=== PATIENT | female | born 1965 | race Caucasian/White ===

== ENCOUNTER 2017-01-31 10:16 | Emergency (ER) | payer BC, MEDICAID ==
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
[2017-01-31 13:23] VITALS: BP 105/70
--- NOTE | 2017-01-31 13:26 | RAD ---
HISTORY: Facial trauma COMPARISONS: None TECHNIQUE: Multiple contiguous axial CT scans were obtained of the face without intravenous contrast, with coronal and sagittal multiplanar reformations. FINDINGS: BONES: There is a minimally displaced fracture of the nasal bones bilaterally. The orbital rims are intact. The zygomatic arches are intact. The pterygoid plates are intact. The patient is status post anterior cervical fusion, with advanced degenerative disc disease and osteoarthritis at C3-C4. There is osteoarthritis of the temporomandibular joints bilaterally. ORBITS: The globes are round. The optic nerves are symmetric. The extraocular musculature is normal. There is no post septal or intraconal inflammatory change. There is no retrobulbar hematoma. PARANASAL SINUSES: The paranasal sinuses are clear. BRAIN AND SOFT TISSUE: Unremarkable. OTHER: None. IMPRESSION: 1. MINIMALLY DISPLACED FRACTURE OF THE NASAL BONES BILATERALLY. 2. ADVANCED OSTEOARTHRITIS AND DEGENERATIVE DISC DISEASE AT C3-C4. 3. OSTEOARTHRITIS OF THE TEMPOROMANDIBULAR JOINTS BILATERALLY.
== END 2017-01-31 13:40 | disposition home or self-care (01) ==
LOC: UCEAST 10:16
DX: S02.2XXA Fracture of nasal bones, initial encounter for closed fracture (principal); W50.0XXA Accidental hit or strike by another person, initial encounter; Y92.9 Unspecified place or not applicable; S00.83XA Contusion of other part of head, initial encounter
CPT/HCPCS: 70486; 99212; G0463

== ENCOUNTER 2019-02-28 17:10 | Emergency (ER) | payer BC, MEDICAID ==
--- OUTSIDE RECORDS SUMMARY | 2019-02-28 17:17 | XMS REPORT | Continuity of Care Document ---
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 Oncology Problems Active Problems Provider Date Temporomandibular joint disorder Onset: 01/26/2015 Neck pain Onset: 01/26/2015 Chronic pain due to injury Onset: 01/26/2015 Degeneration of cervical intervertebral disc Onset: 01/26/2015 Headache Onset: 01/26/2015 Shoulder joint pain Onset: 01/26/2015 Brachial neuritis Onset: 01/26/2015 Disorder of jaw Onset: 01/26/2015 Hypothyroidism Onset: 05/23/2011 Migraine with typical aura Onset: 05/23/2011 Anxiety state Onset: 07/04/2011 Social History Type Date Description Comments Sex Unknown ETOH Use Rarely consumes alcohol Tobacco Use Start: Unknown Patient has never smoked Smoking Status Reviewed: 11/18/18 Patient has never smoked Allergies, Adverse Reactions, Alerts Active Allergies Reaction Severity Comments Date Hydromorphone 04/25/2018 Acetaminophen 04/25/2018 Morphine Liposomal Free Text 04/25/2018 Meperidine Free Text 04/25/2018 Penicillin Free Text 04/25/2018 Hydromorphone Free Text 04/25/2018 Codeine 04/25/2018 Erythromycin 04/25/2018 Acetaminophen Contact dermatitis 04/25/2018 Medications Active Medications SIG Qnty Indications Ordering Date Provider Propranolol HCL ER 1 by mouth every 90caps G43.109 Fermin 01/08/2019 120mg day MD Micah Caps ER 24HR Cyclobenzaprine HCL 1 by mouth three 45tabs M62.830 11/18/2018 10mg times a day MD Micah Tablets Pantoprazole Sodium 1 by mouth every 30units 11/04/2018 40mg day MD Micah Solution Rec Ferrous Sulfate 1 by mouth two 60tabs 11/04/2018 325(65Fe) times a day MD Micah mg Tablets Lidocaine apply to 60gm 11/04/2018 4% Cream affected areas 3 MD Micah or 4 times daily Senna take 2 tablets 30tabs 11/04/2018 8.6mg Tablets by mouth every MD Micah day as needed Polyethylene Glycol mix 1 capful in 11/04/2018 3350-GRX 8 oz of liquid MD Micah 3350-GRX Powder 3x per week Cymbalta 1 by mouth every 90caps 01/14/[address] Rodriges along with MD Micah the 60 mg Amitriptyline HCL 2 by mouth every 180tabs 12/22/2017 25mg day MD Micah Tablets Celecoxib 2 by mouth every 180caps M41.40 11/12/2016 200mg Capsules day ( will be MD Micah cutting down to 1 daily) [place] Thyroid 1 tablet twice a 90tabs E03.9 02/21/2015 60mg Tablets day 1/2 hour MD Micah before meal or other meds Vitamin D3 Super 1 po qd 90tabs 04/23/2013 Strength MD Micah 2000Unit Tablets Cymbalta take 1 capsule 90caps 05/23/[address] Rodriges daily MD Micah History Medications Butalbital/Acetaminophen/Caffeine take 1 8caps 11/04/2018 - 50-325-40mg capsule as MD Micah 11/04/2018 Capsules needed for bad migraine n mdd 1 Diclofenac Sodium apply not 100units 11/04/2018 - 1% Gel more than 2 MD Micah 11/04/2018 grams to the hands 4 times a day as needed Immunizations CPT Code Status Date Vaccine Lot # 14912 Given 07/04/2011 Tdap - Tetanus/Diptheria/Acellular Pertussis 81159 Given 05/11/2009 Administration Swine Flu Shot 35356 Given 02/25/2007 Influenza Virus 3Yrs & Over 71196 Given 08/19/2003 Tetanus And Diptheria (Td) For Adult Use Preservative Free Vital Signs Date Vital Result Comment 01/19/2019 11:08am Weight 140.00 lb BP Systolic 102 mmHg BP Diastolic 76 mmHg 11/18/2018 11:07am Weight 139.00 lb Results Test Date Facility Test Result H/L Range Note CBC Auto 01/16/2019 [facility] White Blood 4.3 10^3/uL Normal 3.5-10.[address] [place] [address] [phone] Red Blood Count 4.79 10^6/uL Normal 3.70-4.87 Hemoglobin 13.3 g/dL Normal 12.0-16.0 Hematocrit 40 % Normal 35-47 Mean Corpuscular Volume 83 fL Normal 80-97 Mean Corpuscular Hemoglobin 28 pg Normal 27-31 Mean Corpuscular HGB Conc 34 g/dL Normal 31-36 Red Cell Distribution Width 16 % High 10-15 Platelet Count 233 10^3/uL Normal 150-450 Mean Platelet Volume 6.3 fL Low 7.4-10.4 Abs Neutrophils 2.1 10^3/uL Normal 1.5-7.7 Abs Lymphocytes 1.5 10^3/uL Normal 1.0-4.8 Abs Monocytes 0.5 10^3/uL Normal 0-0.8 Abs Eosinophils 0.3 10^3/uL Normal 0-0.6 Abs Basophils 0.0 10^3/uL Normal 0-0.2 Abs Nucleated RBC 0.0 10^3/uL Granulocyte % 48.2 % Lymphocyte % 33.4 % Monocyte % 10.7 % Eosinophil % 7.2 % Basophil % 0.5 % Nucleated Red Blood Cells % 0.3 Iron & Iron Binding 01/16/2019 [facility] Iron 59 g/dL Normal 50-212 [address]acity [address] [place] [address] [phone] Unsaturated Iron Binding < 285 g/dL Total Iron Binding Capacity 300 g/dL Normal 250-450 Transferrin 214 mg/dL Normal 203-362 % Iron Saturation 20 % Normal 15-55 Vitamin B12 01/16/2019 [facility] Vitamin B12 608 pg/mL Normal 180-914 [address]olate [address] [place] [address] [phone] Folic Acid (Folate) > 20.00 ng/mL >3.99 CBC Auto 11/17/2018 [facility] White Blood 5.0 10^3/uL Normal 3.5-10.[address] [place] [address] [phone] Red Blood Count 3.72 10^6/uL Normal 3.70-4.87 Hemoglobin 10.7 g/dL Low 12.0-16.0 Hematocrit 32 % Low 35-47 Mean Corpuscular Volume 85 fL Normal 80-97 Mean Corpuscular Hemoglobin 29 pg Normal 27-31 Mean Corpuscular HGB Conc 34 g/dL Normal 31-36 Red Cell Distribution Width 16 % High 10-15 Platelet Count 285 10^3/uL Normal 150-450 Mean Platelet Volume 6.3 fL Low 7.4-10.4 Abs Neutrophils 3.4 10^3/uL Normal 1.5-7.7 Abs Lymphocytes 1.1 10^3/uL Normal 1.0-4.8 Abs Monocytes 0.4 10^3/uL Normal 0-0.8 Abs Eosinophils 0.2 10^3/uL Normal 0-0.6 Abs Basophils 0.0 10^3/uL Normal 0-0.2 Abs Nucleated RBC 0.0 10^3/uL Granulocyte % 66.5 % Lymphocyte % 21.8 % Monocyte % 6.9 % Eosinophil % 4.1 % Basophil % 0.7 % Nucleated Red Blood Cells % 0.0 Laboratory test 11/17/2018 [facility] Ferritin 41.5 ng/mL Normal 11-[address] [place] [address] [phone] Iron & Iron 11/17/2018 [facility] Iron 218 g/dL High 50-212 Binding Capacity [address] [place] [address] [phone] Unsaturated Iron Binding 80 g/dL Total Iron Binding Capacity 298 g/dL Normal 250-450 Transferrin 213 mg/dL Normal 203-362 % Iron Saturation 73 % High 15-55 CBC Auto 11/05/2018 [facility] White Blood 5.3 10^3/uL Normal 3.5-10.[address] [place] [address] [phone] Red Blood Count 3.71 10^6/uL Normal 3.70-4.87 Hemoglobin 10.5 g/dL Low 12.0-16.0 Hematocrit 32 % Low 35-47 Mean Corpuscular Volume 86 fL Normal 80-97 Mean Corpuscular Hemoglobin 28 pg Normal 27-31 Mean Corpuscular HGB Conc 33 g/dL Normal 31-36 Red Cell Distribution Width 15 % Normal 10-15 Platelet Count 419 10^3/uL Normal 150-450 Mean Platelet Volume 6.1 fL Low 7.4-10.4 Abs Neutrophils 2.7 10^3/uL Normal 1.5-7.7 Abs Lymphocytes 1.7 10^3/uL Normal 1.0-4.8 Abs Monocytes 0.7 10^3/uL Normal 0-0.8 Abs Eosinophils 0.2 10^3/uL Normal 0-0.6 Abs Basophils 0.0 10^3/uL Normal 0-0.2 Abs Nucleated RBC 0.0 10^3/uL Granulocyte % 51.0 % Lymphocyte % 32.4 % Monocyte % 12.4 % Eosinophil % 3.7 % Basophil % 0.5 % Nucleated Red Blood Cells % 0.1 Laboratory test 11/05/2018 [facility] Iron 22 g/dL Low 50- [address] [place] [address] [phone] Iron & Iron 11/05/2018 [facility] Unsaturated Iron < [address] Binding g/[place] [address] [phone] Total Iron Binding Capacity 333 g/dL Normal 250-450 Transferrin 238 mg/dL Normal 203-362 % Iron Saturation 7 % Low 15-55 Laboratory test 11/05/2018 [facility] Ferritin 47.1 ng/mL Normal 11-[address] [place] [address] [phone] 1 Normal Range 180 to 914 Indeterminate Range 145 to 180 Deficient Range <145 Procedures Date Code Description Status 03/17/2018 60383018 Mammogram Completed Medical Devices Description No Information Available Encounters Type Date Location Provider Dx Diagnosis Office Visit 11/18/2018 [facility] Fermin Obrien, M54.5 Low back pain 10:30a D64.9 Anemia, unspecified M62.830 Muscle spasm of back Office 11/04/2018 [facility] Fermin D64.9 Anemia, unspecified Visit 2:30p Salud Obrien MD Office 09/08/2018 [facility] Fermin M26.603 Bilateral Visit 3:45p Salud Obrien MD temporomandibular joint disorder, unspecified M54.2 Cervicalgia Assessments Date Code Description Provider 01/19/2019 D64.9 Anemia, unspecified Fermin Obrien MD 01/19/2019 M51.16 Intervertebral disc disorders with Fermin Obrien MD radiculopathy, lumbar region 11/18/2018 M54.5 Low back pain Fermin Obrien MD 11/18/2018 D64.9 Anemia, unspecified Fermin Obrien MD 11/18/2018 M62.830 Muscle spasm of back Fermin Obrien MD 11/04/2018 D64.9 Anemia, unspecified Fermin Obrien MD 09/08/2018 M26.603 Bilateral temporomandibular joint disorder, Fermin Obrien MD unspecified 09/08/2018 M54.2 Cervicalgia Fermin Obrien MD Plan of Treatment Future Appointment(s):03/30/2019 10:45 am - Fermin Obrien MD at [facility]01/19/2019 - Fermin Obrien MDD64.9 Anemia, unspecifiedNew Labs :CBC Auto Diff, Ordered: 01/19/19Ferritin, Ordered: 01/19/19Iron & Iron Binding Capacity, Ordered: 01/19/19Follow up:3 [id number] Intervertebral disc disorders with radiculopathy, lumbar region Functional Status Description No Information Available Mental Status Description No Information Available Referrals Description No Information Available
[2019-02-28 17:31] VITALS: BP 119/90
[2019-02-28] MEDS ORDERED: Lidocaine 1% MPF ** 5 ML VIAL INJ ONE (18:06)
--- NOTE | 2019-02-28 18:48 | UC ---
Laceration HPI - HPI Summary HPI Summary: 53 yo female lacerated her left wrist while cutting a winter squash about 2:30 pm today she is right handed bleeding not pulsatile - History Of Current Complaint Chief Complaint: UCLaceration Stated Complaint: WRIST LAC Time Seen by Provider: 02/28/19 17:59 Hx Obtained From: Patient Hx Last Menstrual Period: 02/16/14 Laceration Location: Wrist Mechanism Of Injury: Sharp Trauma Onset/Duration: Sudden Onset, Lasting Minutes Severity: Mild Pain Intensity: 1 Pain Scale Used: 0-10 Numeric Aggravating Factors: Nothing Hands: 1 - lac - Allergies/Home Medications Allergies/Adverse Reactions: Allergies Allergy/AdvReac Type Severity Reaction Status Date / Time azithromycin Allergy Rash Verified 02/28/19 17:33 hydromorphone [From Dilaudid] Allergy Rash Verified 02/28/19 17:33 meperidine [From Demerol] Allergy Rash Verified 02/28/19 17:33 morphine Allergy Rash Verified 02/28/19 17:33 oxycodone [From Percodan] Allergy Rash Verified 02/28/19 17:33 Penicillins Allergy Hives Verified 02/28/19 17:33 Home Medications: Home Medications Amitriptyline TAB* [Elavil TAB*] 20 mg PO BEDTIME 02/28/19 [History Confirmed ] Cyclobenzaprine TAB* [Flexeril 10 MG TAB*] 10 mg PO BID PRN 02/28/19 [History Confirmed 02/28/19] DULoxetine DR CAP* [Cymbalta CAP*] 90 mg PO DAILY 02/28/19 [History Confirmed ] Thyroid,Pork [Wylie Thyroid] 60 mg PO DAILY 02/28/19 [History Confirmed ] PMH/Surg Hx/FS Hx/Imm Hx Previously Healthy: Yes Endocrine History: Thyroid Disease - Surgical History Surgical History: Yes Surgery Procedure, Year, and Place: NECK FUSION. LEFT CARPAL TUNNEL. TMJ X2. RIGHT FOOT. lower back fusion - Family History Known Family History: Positive: Cardiac Disease, Hypertension - Social History Alcohol Use: None Substance Use Type: None Smoking Status (MU): Never Smoked Tobacco - Immunization History Most Recent Tetanus Shot: 2017 Review of Systems All Other Systems Reviewed And Are Negative: Yes Constitutional: Positive: Negative Skin: Positive: Other - lac Eyes: Positive: Negative ENT: Positive: Negative Respiratory: Positive: Negative Cardiovascular: Positive: Negative Gastrointestinal: Positive: Negative Genitourinary: Positive: Negative Motor: Positive: Negative Neurovascular: Positive: Negative Musculoskeletal: Positive: Negative Neurological: Positive: Negative Psychological: Positive: Negative Physical Exam Triage Information Reviewed: Yes Appearance: Well-Appearing, No Pain Distress, Well-Nourished Vital Signs: Initial Vital Signs Temp 98 F 02/28/19 17:28 Pulse 55 02/28/19 17:28 Resp 14 02/28/19 17:28 BP 119/90 02/28/19 17:28 Pulse Ox 98 02/28/19 17:28 Vital Signs Reviewed: Yes Eyes: Positive: Conjunctiva Clear ENT: Positive: Hearing grossly normal. Negative: Nasal congestion, Nasal drainage, Tonsillar swelling, Tonsillar exudate, Hoarse voice Dental Exam: Normal Neck: Positive: Supple, Nontender, No Lymphadenopathy Respiratory: Positive: No respiratory distress, No accessory muscle use Cardiovascular: Positive: RRR Musculoskeletal: Positive: ROM Intact, No Edema Neurological: Positive: Alert Psychological Exam: Normal Skin Exam: Other - see image Laceration Repair - Laceration Repair 1 Description: Linear Laceration Size After Repair: Length (cm) - 1.2, Width (mm) - 1, Depth (mm) - 3 Modified For Repair: No Type Injection: Local Anesthesia Used: 1.0% Lido Cleansing Completed Via Routine Prep: Yes Irrigation With Pressure Irrigation Device: Yes Closure Material: Sutures Closure Method: Single Layer Suture Of: Skin Suture Type: Nylon - 2 5-0 Laceration Course/Dx - Diagnosis Provider Diagnosis: Laceration of left wrist Discharge ED - Sign-Out/Discharge Documenting (check all that apply): Patient Departure All imaging exams completed and their final reports reviewed: No Studies - Discharge Plan Condition: Stable Disposition: HOME Patient Education Materials: Laceration (ED) Referrals: Fermin Obrien MD [Primary Care Provider] - 7 Days (recmove sutures in 7- 10 days) Additional Instructions: gently clean twice daily with soap and water thin film of antibiotic ointment bandaid recheck for concerns of infection - Billing Disposition and Condition Condition: STABLE Disposition: Home
== END 2019-02-28 19:03 | disposition home or self-care (01) ==
LOC: UCEAST 17:10
DX: S61.512A Laceration without foreign body of left wrist, initial encounter (principal); E07.89 Other specified disorders of thyroid; Z88.0 Allergy status to penicillin; Z88.1 Allergy status to other antibiotic agents; Z88.5 Allergy status to narcotic agent; Z88.8 Allergy status to other drugs, medicaments and biological substances; Z79.899 Other long term (current) drug therapy; Z82.49 Family history of ischemic heart disease and other diseases of the circulatory system; W26.8XXA Contact with other sharp object(s), not elsewhere classified, initial encounter; Y92.9 Unspecified place or not applicable
CPT/HCPCS: 12001; 99211; G0463